=== PATIENT | male | born 1955 | race Caucasian/White ===

== ENCOUNTER 2017-05-26 12:29 | Day surgery (SDC) | payer OTHER ==
[~2017-05-26] VITALS: Ht 188 cm; Wt 110.1 kg
[2017-05-26 13:31] VITALS: Ht 188 cm; Wt 110.1 kg
[2017-05-26] MEDS ORDERED: CHOL100062 PO (13:34)
[2017-05-26] MEDS ORDERED: HYDR25TA6 PO (13:34)
[2017-05-26] MEDS ORDERED: IMAT400T6 PO (13:34)
[2017-05-26 14:19] VITALS: BP 122/69; PULSE 75; RESP 18
--- NOTE | 2017-05-26 16:03 | OPPN ---
Date/Time of Note Date/Time of Note DATE: 05/26/17 TIME: 15:55 Proc Note GI Procedure Date 05/26/17 Indication: other (Surveillance colonoscopy for history of polyps) Pre-procedure Diagnosis Surveillance colonoscopy for history of polyps Post-procedure Diagnosis Impression: 3 small 2-3 mm polyps in the rectum. Ablated 3 mm polyp in the deep cecum. Ablated 8 mm sessile polyp proximal ascending colon. Snared, specimen lost 10 mm sessile polyp proximal ascending colon. Snared and retrieved 8 mm sessile polyp distal descending colon. Snared and retrieved Moderate-sized internal hemorrhoids Small skin tag Plan: Follow up as scheduled] High fiber diet Annual hemoccult stool testing [Review pathology] [Surveillance colonoscopy in 5 years] . Procedure Performed: Colonoscopy (+ ablation, + snare polypectomy) Surgeon ELSIE ESCALONA MD see signature line Educational Speech Language Clinician none Anesthesia Type: moderate sedation (Versed 5mg/Fentanyl 100mcg) Tourniquet Time none EBL none Transfusion required none Biopsy 1: none Polyp 1: rectal polyp Polyp 2: cecum polyp Polyp 3: ascending colon polyp Additional Polyp: descending colon polyp Grafts/Implants none Tubes/Drains none Complication(s) none Disposition: home Procedure Description After informed consent, with the patient/relatives understanding the procedure, its indications and potential risks and complications, including but not limited to: Allergic reaction, bleeding, perforation, infection, and after all pertinent questions were answered to the patient's satisfaction, the patient/ relatives signed the witnessed informed consent. Following this, premedication was administered slowly IV push under careful cardiovascular and respiratory monitoring with pulse O[employer], automatic blood pressure, and bus monitor. Once the sedative effect was achieved, the patient was placed in the left lateral decubitus position, digital rectal examination was performed. The colonoscope was then introduced and advanced under visual control throughout all segments of the colon including: the rectum, sigmoid, descending colon, splenic flexure, transverse colon, hepatic flexure, ascending colon and finally reaching the cecum which was clearly identified by transillumination, finger indentation and the ileocecal valve. Careful examination of the mucosa of the lower gastrointestinal tract both on insertion as well as withdrawal of the instrument disclosed the following findings: PREPARATION QUALITY: [Adequate], RECTAL EXAM: The anorectal area was visualized examined and digital rectal examination performed with the following findings: Small skin tag in the perianal area. Otherwise no evidence of perirectal disease, no masses. COLONIC MUCOSA: The mucosa of all segments of the colon was carefully examined and showed the following findings: There are 3 small 2-3 mm polyps in the rectum. Ablated.3 mm polyp in the deep cecum. Ablated. 8 mm sessile polyp proximal ascending colon. Snared, specimen lost. 10 mm sessile polyp proximal ascending colon. Snared and retrieved. 8 mm sessile polyp distal descending colon. Snared and retrieved Moderate-sized internal hemorrhoids. Otherwise the examined mucosa appears within normal limits. There is no evidence of inflammatory changes, diverticular formation, other polyps or neoplasms, vascular malformation, or any other abnormality. The instrument was then withdrawn, the patient tolerated the procedure well and was transferred out of the Endoscopy Suite awake and in good condition to continue recovery under observation. Copies To: CC: ELSIE ESCALONA MD, MORDO MD May 26, 2017 16:03
[2017-05-26] MEDS ORDERED: MIDAZOLAM 1 MG/ML 2 ML INJ ONE ×3 (16:25→16:26)
[2017-05-26] MEDS ORDERED: FENTAnyl 50 MCG/ML VIAL ONE (16:26)
[2017-05-26 16:30] VITALS: BP 116/62; PULSE 66; RESP 20
== END 2017-05-26 16:33 | disposition home or self-care (01) ==
LOC: GIL 12:29
PROVIDERS: ATTEND Internal Medicine Gastroenterology
DX: Z12.11 Encounter for screening for malignant neoplasm of colon (principal); K62.1 Rectal polyp; D12.2 Benign neoplasm of ascending colon; D12.0 Benign neoplasm of cecum; D12.4 Benign neoplasm of descending colon; K64.8 Other hemorrhoids; I10 Essential (primary) hypertension
CPT/HCPCS: 45380; 88305; J2250; J3010; Z7610